=== PATIENT | female | born 1960 | race Caucasian/White ===

== ENCOUNTER 2017-04-13 10:26 | Emergency (ER) | payer OTHER ==
[~2017-04-13] VITALS: Ht 170.2 cm; Wt 71.3 kg
[~2017-04-13 10:26] MED LIST: ASPI-515 PO; ATOR10TA PO; DILT120C9 PO; OMEP10CA2 PO; ZOLP10TA PO
[2017-04-13 10:30] VITALS: BP 119/85
[2017-04-13] MEDS ORDERED: HYDR-3240 PO (10:51)
[2017-04-13] MEDS ORDERED: HYDROcodone/APAP 5/325 TABLET ONE (10:52)
[2017-04-13] MEDS ORDERED: HYDROcodone/APAP 5/325 TABLET PO ONE (11:00)
== END 2017-04-13 11:15 | disposition home or self-care (01) ==
LOC: ED 10:54
DX: K13.0 Diseases of lips (principal)
CPT/HCPCS: 99283

== ENCOUNTER → 2017-05-10 | Outpatient (CLI) | payer OTHER ==
[~2017-05-10] MED LIST changes: +HYDR-3240 PO; +OMNIPAQUE 350 MG/ML, 100ML BOTTLE ONE
== END | disposition home or self-care (01) ==
LOC: RAD 13:51
PROVIDERS: ATTEND Nurse Practitioner Family
DX: K42.9 Umbilical hernia without obstruction or gangrene (principal); K76.0 Fatty (change of) liver, not elsewhere classified; N32.89 Other specified disorders of bladder; I25.10 Atherosclerotic heart disease of native coronary artery without angina pectoris
CPT/HCPCS: 74177; Q9967

== ENCOUNTER → 2017-05-13 | Outpatient (CLI) | payer OTHER ==
[~2017-05-13] MED LIST changes: -OMNIPAQUE 350 MG/ML, 100ML BOTTLE ONE
== END | disposition home or self-care (01) ==
LOC: CFH 12:39
PROVIDERS: ATTEND Nurse Practitioner Family
DX: M25.551 Pain in right hip (principal); M51.16 Intervertebral disc disorders with radiculopathy, lumbar region
CPT/HCPCS: 73523

== ENCOUNTER → 2017-06-04 | Outpatient (CLI) | payer OTHER ==
[~2017-06-04] MED LIST changes: +REGADENOSON 0.4 MG/5 ML SYRINGE ONE
== END ==
LOC: CFH 08:00
PROVIDERS: ATTEND Internal Medicine Cardiovascular Disease
DX: I25.10 Atherosclerotic heart disease of native coronary artery without angina pectoris (principal); E78.5 Hyperlipidemia, unspecified; F17.200 Nicotine dependence, unspecified, uncomplicated; Z95.5 Presence of coronary angioplasty implant and graft
CPT/HCPCS: 93306; J2785

== ENCOUNTER → 2017-06-08 | Outpatient (CLI) | payer OTHER ==
[~2017-06-08] MED LIST changes: -REGADENOSON 0.4 MG/5 ML SYRINGE ONE
== END | disposition home or self-care (01) ==
LOC: CFH 14:22
PROVIDERS: ATTEND Nurse Practitioner Family
DX: M51.16 Intervertebral disc disorders with radiculopathy, lumbar region (principal); M47.896 Other spondylosis, lumbar region
CPT/HCPCS: 72148

== ENCOUNTER → 2017-06-25 | Outpatient (CLI) | payer OTHER | END | disposition home or self-care (01) | LOC: RAD 12:24 | PROVIDERS: ATTEND Internal Medicine Cardiovascular Disease | DX: Z01.810 Encounter for preprocedural cardiovascular examination (principal); I25.10 Atherosclerotic heart disease of native coronary artery without angina pectoris; R07.9 Chest pain, unspecified | CPT/HCPCS: 78452; 93017; A9502 ==

== ENCOUNTER → 2018-12-06 | Outpatient (CLI) | payer OTHER | END | disposition home or self-care (01) | LOC: CFH 09:19 | PROVIDERS: ATTEND Nurse Practitioner Family | DX: Z12.31 Encounter for screening mammogram for malignant neoplasm of breast (principal) | CPT/HCPCS: 77067 ==

== ENCOUNTER 2020-02-01 17:42 | Observation (INO) | payer OTHER ==
[~2020-02-01] VITALS: Ht 170.2 cm; Wt 65.0 kg
[~2020-02-01 17:42] MED LIST changes: +CARV3.1212 PO; +CYCL-259 PO; +DILT120C48 PO; -DILT120C9 PO; +NITR0.4T28 SL; +NITR9CAP10 PO; +ROSU40TA PO
--- NOTE | 2020-02-01 17:52 | NUR ---
ALAN CORRALES FROM WORK ([employer]). C/O CP; STARTED AT 1644. TOOK OWN NTG X3, ASA 81MG X3. EMS GAVE NTG X 2 (LAST DOSE AT 1735) AND ASA 81MG. REPORTS NAUSEA WITH INTITIAL CP. DENIES VOMITING, RECENT ILLNESS. CARDIAC & VS MONITORING EQUIPMENT APPLIED, EKG DONE. SPOUSE IN ROOM.
--- NOTE | 2020-02-01 17:57 | NUR ---
PT ENDORSED TO BREAK RN
[2020-02-01] MEDS ORDERED: SODIUM CHLORIDE FLUSH 10ML SYR IVF ONE (18:30)
[2020-02-01] MEDS ORDERED: SODIUM CHLORIDE 0.9% 1,000ML IVBOLUS ONE (18:30)
[2020-02-01] MEDS ORDERED: MORPHINE SULFATE 4 MG/ML, 1ML IVPush PRN (18:30)
[2020-02-01] MEDS ORDERED: MORPHINE SULFATE 4 MG/ML, 1ML ONE (18:34)
[2020-02-01] MEDS ORDERED: HYDR-3241 PO (18:45)
[2020-02-01] MEDS ORDERED: OMEP20CA20 PO (18:45)
[2020-02-01 18:46] LABS: BASOPHILS # (AUTO) 0.11 x10^3/uL (0-0.1); BASOPHILS % (AUTO) 1 % (0-1); EOSINOPHILS # (AUTO) 0.12 x10^3/uL (0-0.4); EOSINOPHILS % (AUTO) 1 % (1-7); LYMPHOCYTES # (AUTO) 3.24 x10^3/uL (1-3.4); LYMPHOCYTES % (AUTO) 31 % (22-44); MD NO; MEAN CORPUSCULAR HEMOGLOBIN 31.9 pg (27.0-34.8); MEAN CORPUSCULAR HGB CONC 33.8 g/dL (32.4-35.8); MEAN CORPUSCULAR VOLUME 94.5 fL (80-100); MEAN PLATELET VOLUME 9.2 fL (7.4-10.4); MONOCYTES # (AUTO) 0.76 x10^3/uL (0.2-0.8); MONOCYTES % (AUTO) 7 % (2-9); NEUTROPHILS % (AUTO) 60 % (42-75); PLATELET COUNT 273 x10^3/uL (130-400); RED BLOOD COUNT 4.71 x10^6/uL (3.82-5.3); RED CELL DISTRIBUTION WIDTH 12.9 % (9.6-15.2)
[2020-02-01] MEDS ORDERED: STOOL SOFTENER (18:46)
[2020-02-01] MEDS ORDERED: CALCIUM (18:46)
[2020-02-01 18:50] LABS: ALBUMIN 3.8 g/dL (3.4-5.0); ANION GAP 8 mmol/L (5-15); CALCIUM 9.3 mg/dL (8.5-10.1); CHLORIDE 107 mmol/L (98-107)
[2020-02-01 18:57] LABS: ALANINE AMINOTRANSFERASE 22 U/L (12-78); ALKALINE PHOSPHATASE 73 U/L (45-117); BILIRUBIN,TOTAL 0.4 mg/dL (0.2-1.0); CREATININE 1.05 mg/dL (0.55-1.02); TOTAL PROTEIN 7.1 g/dL (6.4-8.2); TROPONIN I < 0.015 ng/mL (0.000-0.045)
--- NOTE | 2020-02-01 20:53 | NUR ---
PT REPORT TO DANYELL MANCERA FOR ROOM 501
[2020-02-01 21:21] VITALS: BP 121/57
[2020-02-01] MEDS ORDERED: TEMPLATE NON-FORMULARY MED. (Rosuvastatin Calcium** (Crestor**) 40 MG) HOMEMEDPO SCH (22:00)
[2020-02-01] MEDS ORDERED: morphine SULFATE 10 MG/ML, 1ML IVPush PRN (22:00)
[2020-02-01] MEDS ORDERED: BISACODYL 10 MG SUPP PR PRN (22:00)
[2020-02-01] MEDS ORDERED: POLYETHYLENE GLYCOL 17 GM PACKET PO PRN (22:00)
[2020-02-01] MEDS ORDERED: DOCUSATE 100 MG CAPSULE PO PRN (22:00)
[2020-02-01] MEDS ORDERED: ACETAMINOPHEN 325 MG TABLET PO PRN (22:00)
[2020-02-01] MEDS ORDERED: CYCLOBENZAPRINE 10 MG TABLET PO SCH (22:00)
[2020-02-01] MEDS ORDERED: NITROGLYCERIN SINGLE TAB 0.4 MG SL PRN (22:00)
[2020-02-01] MEDS ORDERED: ONDANSETRON ODT 4 MG PO PRN (22:00)
[2020-02-01] MEDS ORDERED: OMEPRAZOLE 20 MG CAPSULE.DR PO SCH (22:00)
[2020-02-01] MEDS: SODIUM CHLORIDE FLUSH 10ML SYR IVF SCH (22:36)
[2020-02-02 00:03] VITALS: BP 99/61
[2020-02-02 01:01] LABS: TROPONIN I < 0.015 ng/mL (0.000-0.045)
[2020-02-02] MEDS ORDERED: CARVEDILOL 3.125 MG TABLET PO SCH (06:00)
[2020-02-02 06:58] VITALS: BP 109/72
[2020-02-02 07:11] LABS: TROPONIN I < 0.015 ng/mL (0.000-0.045)
[2020-02-02] MEDS ORDERED: ASPIRIN 81 MG TABLET EC PO SCH (09:00)
[2020-02-02] MEDS: SODIUM CHLORIDE FLUSH 10ML SYR IVF SCH (09:41)
[2020-02-02] MEDS ORDERED: REGADENOSON 0.4 MG/5 ML SYRINGE ONE (12:11)
== END 2020-02-02 15:20 | disposition home or self-care (01) ==
LOC: ED 18:12 → INTOOBSV 19:56 → EDIP 19:56 → 5SO 21:10 → DCLOUNGE 02-02 15:17
PROVIDERS: ADMIT Internal Medicine; ATTEND Internal Medicine
DX: R07.89 Other chest pain (principal); M54.9 Dorsalgia, unspecified; G89.29 Other chronic pain; I25.2 Old myocardial infarction; E78.5 Hyperlipidemia, unspecified; I25.10 Atherosclerotic heart disease of native coronary artery without angina pectoris; F17.200 Nicotine dependence, unspecified, uncomplicated; K21.9 Gastro-esophageal reflux disease without esophagitis; Z79.899 Other long term (current) drug therapy; Z79.82 Long term (current) use of aspirin
CPT/HCPCS: 36415; 71045; 78452; 80053; 84484; 85025; 93005; 93017; 96374; 99285; A9502; G0378; J2270; J2785; J7030

== ENCOUNTER 2020-06-30 18:34 | Emergency (ER) | payer OTHER ==
[~2020-06-30] VITALS: Ht 170.2 cm; Wt 70.0 kg
[~2020-06-30 18:34] MED LIST changes: +CALCIUM; +HYDR-3241 PO; +OMEP20CA20 PO; +STOOL SOFTENER
[2020-06-30 18:38] VITALS: BP 125/58
[2020-06-30] MEDS ORDERED: LIDOCAINE-MPF 1%, 5ML ONE (18:40)
[2020-06-30] MEDS ORDERED: LIDOCAINE-MPF 1%, 5ML INFIL ONE (19:00)
[2020-06-30] MEDS ORDERED: DIPH,PERTUSS(ACELL),TET VAC/PF 0.5 ML IM-VACC ONE ×2 (19:00→19:32)
[2020-06-30] MEDS ORDERED: LIDOCAINE 1%, 10ML INFIL ONE (19:00)
[2020-06-30] MEDS ORDERED: NEOSPORIN OINT. PKT 1 PACKET ONE (19:16)
--- NOTE | 2020-06-30 19:50 | NUR ---
WOUND REPAIRED AND DRESSED. PT AMBULATING WELL UPON DISCHARGE.
== END 2020-06-30 19:55 | disposition home or self-care (01) ==
LOC: ED 19:40
DX: S61.215A Laceration without foreign body of left ring finger without damage to nail, initial encounter (principal); S61.217A Laceration without foreign body of left little finger without damage to nail, initial encounter; F17.210 Nicotine dependence, cigarettes, uncomplicated; W26.8XXA Contact with other sharp object(s), not elsewhere classified, initial encounter; Y93.89 Activity, other specified; Y92.69 Other specified industrial and construction area as the place of occurrence of the external cause; Y99.0 Civilian activity done for income or pay
CPT/HCPCS: 12041; 90471; 90715; 99284; 99285